=== PATIENT | male | born 1975 | race Caucasian/White ===

== ENCOUNTER 2020-08-28 12:17 | Inpatient (IN) | payer SELFPAY ==
[~2020-08-28] VITALS: Ht 180.3 cm; Wt 167.4 kg
[2020-08-28 13:49] LABS: BASOPHIL 0.4 % (0-2); EOSINOPHIL 0 % (0-5); HCT 46.1 % (42.0-52.0); HGB 14.7 g/dl (13.2-18.0); LYMPHOCYTE 7.9 % (15-48); MCH 29.9 pg (25.0-31.0); MCHC 31.9 g/dL (32.0-36.0); MCV 93.9 fL (78.0-100.0); MONOCYTE 6.8 % (0-12); MPV 11.2 fL (6.0-9.5); NEUTROPHIL 83.6 % (41-80); NRBC 0; PLT 309 K/uL (150-400); RBC 4.91 M/uL (4.70-6.00); RDW 14.5 % (11.5-14.0)
[2020-08-28 13:50] LABS: WBC 27.5 K/uL (4.0-10.5)
[2020-08-28 15:12] LABS: BILIRUBIN NEGATIVE (NEGATIVE); BLOOD 3+ Ery/uL (NEGATIVE); CLARITY CLEAR (CLEAR); COLOR YELLOW (YELLOW); GLUCOSE (U) NORMAL (NORMAL); LEUKOCYTES NEGATIVE Leu/uL (NEGATIVE); NITRITE NEGATIVE (NEGATIVE); PROTEIN TRACE (LOW) mg/dL (NEGATIVE); SPECIFIC GRAVITY >=1.030 (1.001-1.030); UROBILINOGEN 0.2 mg/dL (0.2-1.0); pH 5.5 (5.0-9.0)
[2020-08-28 15:18] LABS: BACTERIA TRACE
[2020-08-28 15:19] LABS: AMPHETAMINES NEGATIVE (NEGATIVE); BARBITURATES NEGATIVE (NEGATIVE); ECSTASY (MDMA) NEGATIVE (NEGATIVE); MARIJUANA (THC) NEGATIVE (NEGATIVE); METHADONE POSITIVE (NEGATIVE); OPIATES NEGATIVE (NEGATIVE); OXYCODONE NEGATIVE (NEGATIVE)
[2020-08-28 15:46] LABS: ALBUMIN 3.5 g/dL (3.4-5.0); ALKALINE PHOSHATASE 87 U/L (46-116); ALT 56 U/L (16-63); AST 118 U/L (15-37); BILIRUBIN - TOTAL 0.3 mg/dL (0.2-1.0); BUN 10 mg/dL (7-18); BUN/CREAT RATIO (CALC) 8.3 RATIO; CHLORIDE 103 mmol/L (98-107); CO2 (BICARBONATE) 25 mmol/L (21-32); CPK >7000 U/L (39-308); GLOBULIN (CALCULATION) 3.6 g/dL; GLUCOSE 90 mg/dL (74-106); LIPASE 61 U/L (73-393); POTASSIUM 4.2 mmol/L (3.5-5.1); TOTAL PROTEIN 7.1 g/dL (6.4-8.2)
[2020-08-28] MEDS ORDERED: CARAFATE S500 MG/TSP PO (16:22)
[2020-08-28] MEDS ORDERED: DIFLUCAN 100MG100 MG PO (16:22)
--- NOTE | 2020-08-28 20:15 | NUR ---
PATIENT ADMITED FROM THE ED. WAS ON ICU WHEN I CAME ONTO SHIFT. HAD 4.5 GM OF ZOSYN AND A 300MG PHENOBARB DRIP RUNNING. PT. WAS SATTING 86-91 ON ROOM AIR. AT 1999 I PUT HIM ON 2L NC AND HE IS CURRENTLY SATTING 92%. PT. IS GUPPY BREATHING. DR. BERNARD MENTIONED THAT HE MAY NEED INTUBATION TONIGHT. ABG IS ORDERED FOR 2099 TO REASSES. PT. APHASIC AND WE HAVE NO MEDICAL HISTORY ON HIM.
[2020-08-28 21:25] LABS: BASOPHIL 0.4 % (0-2); EOSINOPHIL 0.5 % (0-5); HCT 41.5 % (42.0-52.0); HGB 12.9 g/dl (13.2-18.0); LYMPHOCYTE 18.8 % (15-48); MCH 29.5 pg (25.0-31.0); MCHC 31.1 g/dL (32.0-36.0); MCV 94.7 fL (78.0-100.0); MONOCYTE 7.8 % (0-12); MPV 10.2 fL (6.0-9.5); NEUTROPHIL 71.6 % (41-80); NRBC 0; PLT 247 K/uL (150-400); RBC 4.38 M/uL (4.70-6.00); RDW 14.3 % (11.5-14.0); WBC 18.4 K/uL (4.0-10.5)
[2020-08-28 21:45] LABS: LACTIC ACID 0.4 mmol/L (0.4-1.9)
[2020-08-28 21:54] LABS: ALBUMIN 3.1 g/dL (3.4-5.0); ALKALINE PHOSHATASE 76 U/L (46-116); ALT 71 U/L (16-63); AST 203 U/L (15-37); BILIRUBIN - TOTAL 0.4 mg/dL (0.2-1.0); BUN 8 mg/dL (7-18); BUN/CREAT RATIO (CALC) 7.2 RATIO; CHLORIDE 106 mmol/L (98-107); CO2 (BICARBONATE) 28 mmol/L (21-32); CPK >7000 U/L (39-308); CREATININE 1.11 mg/dL (0.67-1.17); GLOBULIN (CALCULATION) 3.4 g/dL; GLUCOSE 90 mg/dL (74-106); MAGNESIUM 2.6 mg/dL (1.8-2.4); PHOSPHORUS 3.8 mg/dL (2.6-4.7); TOTAL PROTEIN 6.5 g/dL (6.4-8.2)
--- NOTE | 2020-08-28 22:40 | NUR ---
ABG OBTAINED AROUND [address] BERNARD ORDERS. RESULTS SHOWN TO DR. BERNARD. PATIENT HAD VERY DIMINISHED BREATH SOUNDS WITH NOT MUCH AIR MOVEMENT, ABDOMINAL MUSCLE MOVEMENT WITH SLIGHT SNORING RESPIRATIONS. PATIENT WAS INTUBATED WITH 7.5 ET TUBE, WAS 28 @LIP, PULLED BACK PER DR. BERNARD 3CM, PULLED ABOUT 24 @TEETH. TUBE PLACEMENT CONFIRMED VIA CO2 DETETION, AUSCULTATION, AND CXR. PATIENT PLACED ON AC VT 600, RATE 14, +5, 50% FIO2. SPUTUM SPECIMEN OBTAINED PER DR. BERNARD AND SENT TO LAB. PATIENT HAS THICK TO THIN YELLOW SECRETIONS. CONTINUE TO MONITOR PATIENT REPEAT ABG AT 2330 AND IN THE AM
[2020-08-29 04:08] LABS: BASOPHIL 0.4 % (0-2); EOSINOPHIL 0.9 % (0-5); HGB 12.2 g/dl (13.2-18.0); LYMPHOCYTE 21.3 % (15-48); MCH 30.2 pg (25.0-31.0); MCHC 31.3 g/dL (32.0-36.0); MCV 96.5 fL (78.0-100.0); MONOCYTE 8.8 % (0-12); MPV 11.5 fL (6.0-9.5); NEUTROPHIL 67.9 % (41-80); NRBC 0; PLT 229 K/uL (150-400); RBC 4.04 M/uL (4.70-6.00); RDW 14.5 % (11.5-14.0); WBC 13.7 K/uL (4.0-10.5)
[2020-08-29 04:52] LABS: ALBUMIN 2.8 g/dL (3.4-5.0); BILIRUBIN - TOTAL 0.3 mg/dL (0.2-1.0); BUN/CREAT RATIO (CALC) 7.9 RATIO; CREATININE 1.14 mg/dL (0.67-1.17); GLOBULIN (CALCULATION) 3.3 g/dL; MAGNESIUM 2.5 mg/dL (1.8-2.4); PHOSPHORUS 3.2 mg/dL (2.6-4.7); POTASSIUM 4.7 mmol/L (3.5-5.1); TOTAL PROTEIN 6.1 g/dL (6.4-8.2)
--- NOTE | 2020-08-29 05:50 | NUR ---
RR INCREASED TO 16 AFTER ABG OBTAINED FOR 2329. AM ABG OBTINED THIS AM. ALL VALUES NOW WITHIN NORMAL RANGE
--- NOTE | 2020-08-29 13:26 | NUR ---
1230 PT WAS EXTUBATED BY PITA RT, PT DID WELL PLACED ON 4L NC AND 2LNC SATTING 95% STOPPED DIPROVAN AND FENTANYL GTT RESTRAINTS REMOVED AT 1235
[2020-08-29] MEDS ORDERED: TOPROL XL 25MG25 MG PO (16:18)
[2020-08-29] MEDS ORDERED: LASIX20 MG PO (16:18)
[2020-08-29] MEDS ORDERED: PRINIVIL10 MG PO (16:19)
--- NOTE | 2020-08-30 04:09 | NUR ---
AROUND 0200 PT. DEBO'D DOWN TO 36 AND O2 DROPPED TO 66%. WOKE PT. UP AND BOTH CAME BACK TO WNL. PT. STATES THAT HE WEARS CPAP AT HOME. GOT ORDER FROM [facility] OPERATOR TO USE BIPAP HS. PT. VS STABLE SINCE BIPAP WAS INITIATED.
[2020-08-30 06:46] LABS: BASOPHIL 0.6 % (0-2); EOSINOPHIL 2.3 % (0-5); HCT 38.9 % (42.0-52.0); HGB 12.3 g/dl (13.2-18.0); LYMPHOCYTE 29.7 % (15-48); MCH 30.3 pg (25.0-31.0); MCHC 31.6 g/dL (32.0-36.0); MCV 95.8 fL (78.0-100.0); MONOCYTE 8.7 % (0-12); MPV 10.2 fL (6.0-9.5); PLT 214 K/uL (150-400); RBC 4.06 M/uL (4.70-6.00); RDW 14.6 % (11.5-14.0); WBC 11.7 K/uL (4.0-10.5)
[2020-08-30 07:22] LABS: PRO-BNP 152 pg/mL (<125)
[2020-08-30 07:23] LABS: BAND 1 % (0-10); BASOPHIL(M) 1 % (0-2); EOSINOPHIL(M) 2 % (0-5); LYMPHOCYTE(M) 33 % (15-48); METAMYELOCYTE 1; MONOCYTE(M) 7 % (0-12); NEUTROPHILS(M) 56 % (41-80); NRBC 0; PLATELET ESTIMATE NORMAL; PLATELET MORPHOLOGY NORMAL; TOTAL CELL COUNT 200; VARIANT LYMPHOCYTE 2
[2020-08-30 07:30] LABS: ALBUMIN 2.8 g/dL (3.4-5.0); ALKALINE PHOSHATASE 69 U/L (46-116); ALT 76 U/L (16-63); AST 152 U/L (15-37); BILIRUBIN - TOTAL 0.3 mg/dL (0.2-1.0); BUN 7 mg/dL (7-18); CHLORIDE 107 mmol/L (98-107); CO2 (BICARBONATE) 25 mmol/L (21-32); CPK >7000 U/L (39-308); CREATININE 0.88 mg/dL (0.67-1.17); GLOBULIN (CALCULATION) 3.5 g/dL; GLUCOSE 89 mg/dL (74-106); MAGNESIUM 2.2 mg/dL (1.8-2.4); PHOSPHORUS 2.6 mg/dL (2.6-4.7); POTASSIUM 4.1 mmol/L (3.5-5.1); TOTAL PROTEIN 6.3 g/dL (6.4-8.2)
[2020-08-30] MEDS ORDERED: VENTOLIN HFA IN18 GM INH (10:51)
[2020-08-31 06:02] LABS: BASOPHIL 0.7 % (0-2); HGB 12.1 g/dl (13.2-18.0); LYMPHOCYTE 27.2 % (15-48); MCH 29.3 pg (25.0-31.0); MCHC 30.3 g/dL (32.0-36.0); MCV 96.9 fL (78.0-100.0); NEUTROPHIL 60.3 % (41-80); NRBC 0; PLT 198 K/uL (150-400); RBC 4.13 M/uL (4.70-6.00); RDW 14.6 % (11.5-14.0); WBC 12.5 K/uL (4.0-10.5)
[2020-08-31 06:38] LABS: ALBUMIN 2.7 g/dL (3.4-5.0); BILIRUBIN - TOTAL 0.2 mg/dL (0.2-1.0); BUN/CREAT RATIO (CALC) 8.6 RATIO; CREATININE 0.81 mg/dL (0.67-1.17); GLOBULIN (CALCULATION) 3.6 g/dL; POTASSIUM 4.2 mmol/L (3.5-5.1); TOTAL PROTEIN 6.3 g/dL (6.4-8.2)
--- NOTE | 2020-08-31 14:50 | NUR ---
08/31/20 [facility] evaluation is recommended when patient is medically stable.
--- NOTE | 2020-09-01 01:44 | NUR ---
PATIENT HAS REFUSED MDI TXs THIS SHIFT. PATIENT HAS HAD NO COMPLAINTS OF SOA AND HAS BEEN CLEAR. STATED WOULD NOTIFY IF NEEDED. PATIENT UP UNTIL THIS TIME HAS REFUSED CPAP, WOULD NOTIFY WHEN READY TO WEAR. PATIENT HAS BEEN UP IN CHAIR, DID HAVE DESAT TO 86% WITH RT AT BEDSIDE, DID PLACE PATIENT ON 2LNC. PATIENT HAS SLEEP APNEA AND NEW CPAP AT HOME. PACO PARKER NOTIFIED OF ALL PATIENT REFUSALS.
[2020-09-01 06:54] LABS: ALBUMIN 2.7 g/dL (3.4-5.0); BILIRUBIN - TOTAL 0.2 mg/dL (0.2-1.0); BUN/CREAT RATIO (CALC) 5.7 RATIO; CREATININE 0.7 mg/dL (0.67-1.17); GLOBULIN (CALCULATION) 3.8 g/dL; POTASSIUM 4.3 mmol/L (3.5-5.1); TOTAL PROTEIN 6.5 g/dL (6.4-8.2)
[2020-09-01 08:06] LABS: BASOPHIL 0.6 % (0-2); EOSINOPHIL 3.8 % (0-5); HCT 40.7 % (42.0-52.0); HGB 12.6 g/dl (13.2-18.0); LYMPHOCYTE 20.4 % (15-48); MCH 29.6 pg (25.0-31.0); MCV 95.5 fL (78.0-100.0); MONOCYTE 6.9 % (0-12); MPV 10.6 fL (6.0-9.5); NEUTROPHIL 67.5 % (41-80); NRBC 0; PLT 245 K/uL (150-400); RBC 4.26 M/uL (4.70-6.00); RDW 14.5 % (11.5-14.0); WBC 11.3 K/uL (4.0-10.5)
--- NOTE | 2020-09-01 15:11 | NUR ---
09/01/20 Patient has been accepted at [facility].
--- NOTE | 2020-09-01 15:55 | NUR ---
4750 notified by pt mother that pt stated to her "i will kill myself when i leave here" "i took pills and drank alchol to kill myself at hotel" DR. WOODS NOTIFIED [facility] NOTIFIED OF INFO. PT PLACED IN ONE ON ONE OBSERVATION
--- NOTE | 2020-09-01 16:06 | NUR ---
PT TAKEN VIA EMS BY STRETCHER TO [facility] @ [id number]
== END 2020-09-01 15:40 | disposition other institution (70) | DRG 208 ==
LOC: FER 12:17 → EDBD 17:59 → FICU 17:59
PROVIDERS: Emergency Medicine; Internal Medicine; ADMIT Internal Medicine
PROC: 0BH17EZ Insertion of Endotracheal Airway into Trachea, Via Natural or Artificial Opening (ICD-10-PCS; principal; 2020-08-28)
PROC: 5A1945Z Respiratory Ventilation, 24-96 Consecutive Hours (ICD-10-PCS; 2020-08-28)
DX: J96.01 Acute respiratory failure with hypoxia (principal); G93.41 Metabolic encephalopathy; M62.82 Rhabdomyolysis; N17.9 Acute kidney failure, unspecified; J96.02 Acute respiratory failure with hypercapnia; F32.9 Major depressive disorder, single episode, unspecified; F10.10 Alcohol abuse, uncomplicated; G47.33 Obstructive sleep apnea (adult) (pediatric); E66.01 Morbid (severe) obesity due to excess calories; Z20.822 Contact with and (suspected) exposure to COVID-19; F17.210 Nicotine dependence, cigarettes, uncomplicated; E86.0 Dehydration
CPT/HCPCS: 31500; 36415; 36600; 70450; 71045; 71250; 80053; 80305; 81001; 82550; 82803; 83605; 83690; 83735; 83880; 84100; 84145; 84484; 85025; 86140; 87040; 87070; 87077; 87186; 87205; 93005; 94002; 94640; 94660; 94667; 94668; 96372; G0480; J1650; J2060; J2250; J2270; J2543; J2560; J2704; J3010; J3360; J3411; J3475; J3486; J7030; U0002